=== PATIENT | male | born 1995 | race African-American/Black ===

== ENCOUNTER 2018-10-18 23:18 | Emergency (ER) | payer SELFPAY ==
[~2018-10-18] VITALS: Ht 188 cm; Wt 109.1 kg
[~2018-10-18 23:18] MED LIST: CEPHALEXIN500 M1 PO; NO HOME MEDICATIONS; NORCO 325 MG-51 TAB PO
[2018-10-18 23:27] VITALS: BP 145/76; TEMP 99
[2018-10-19] MEDS ORDERED: LEVAQUIN 750MG750 M1 PO (01:04)
[2018-10-19 01:27] VITALS: PULSE 70
== END 2018-10-19 01:27 | disposition home or self-care (01) ==
LOC: COL.ER 23:18
DX: S90.122A Contusion of left lesser toe(s) without damage to nail, initial encounter (principal); S90.425A Blister (nonthermal), left lesser toe(s), initial encounter; F17.210 Nicotine dependence, cigarettes, uncomplicated; F12.90 Cannabis use, unspecified, uncomplicated; F32.9 Major depressive disorder, single episode, unspecified; G47.00 Insomnia, unspecified; W22.8XXA Striking against or struck by other objects, initial encounter

== ENCOUNTER 2019-01-22 18:30 | Emergency (ER) | payer SELFPAY ==
[~2019-01-22] VITALS: Ht 190.5 cm; Wt 116.8 kg
[~2019-01-22 18:30] MED LIST changes: +LEVAQUIN 750MG750 M1 PO
[2019-01-22 18:35] VITALS: BP 148/65; TEMP 98.9
[2019-01-22 19:30] VITALS: PULSE 83
== END 2019-01-22 19:30 | disposition home or self-care (01) ==
LOC: COL.ER 18:30
DX: S61.212A Laceration without foreign body of right middle finger without damage to nail, initial encounter (principal); F17.210 Nicotine dependence, cigarettes, uncomplicated; F32.9 Major depressive disorder, single episode, unspecified; W25.XXXA Contact with sharp glass, initial encounter; Y92.009 Unspecified place in unspecified non-institutional (private) residence as the place of occurrence of the external cause

== ENCOUNTER 2021-02-09 11:03 | Emergency (ER) | payer OTHER ==
[~2021-02-09] VITALS: Ht 190.5 cm; Wt 98.2 kg
[2021-02-09 11:23] VITALS: BP 159/65; TEMP 98
[2021-02-09] MEDS ORDERED: CEPHALEXIN500 M1 PO (13:57)
[2021-02-09 14:06] VITALS: PULSE 65
== END 2021-02-09 14:06 | disposition home or self-care (01) ==
LOC: COL.ER 11:03
DX: S62.611A Displaced fracture of proximal phalanx of left index finger, initial encounter for closed fracture (principal); Z87.891 Personal history of nicotine dependence; W23.1XXA Caught, crushed, jammed, or pinched between stationary objects, initial encounter; Y92.009 Unspecified place in unspecified non-institutional (private) residence as the place of occurrence of the external cause

== ENCOUNTER 2023-11-28 09:39 | Observation (INO) | payer OTHER ==
[2023-11-28] VITALS (7 sets, daily range): BP systolic 125–136; BP diastolic 49–90; PULSE 60–76; TEMP 97.5–98.4
[~2023-11-28] VITALS: Ht 190.5 cm; Wt 100.0 kg
[2023-11-28] MEDS ORDERED: Morphine 4 MG/ML VIAL IV PRN ×2 (10:30→14:30)
[2023-11-28] MEDS ORDERED: NS 1,000 ML IV ONE (10:30)
[2023-11-28] MEDS ORDERED: Ondansetron 4 MG/2 ML VIAL IV ONE (10:30)
[2023-11-28 11:05] LABS: BASO % 0.2 % (0.0-2.0); EOS % 0.3 % (0.0-4.0); GRAN # 10.1 K/mm3 (1.4-6.5); GRAN % 81.1 % (42.2-75.2); HEMATOCRIT 42.3 % (42.0-52.0); HEMOGLOBIN 13.7 g/dl (13.5-18.0); LYMPH # 1.5 K/mm3 (1.2-3.4); LYMPH % 11.7 % (20.0-51.0); MEAN CELL VOLUME 65 fl (80.0-100.0); MEAN CORPUSCULAR HEMOGLOBIN 21 pg (27-31); MEAN CORPUSCULAR HGB CONC 32 g/dl (33.0-37.0); MEAN PLATELET VOLUME 8.9 fl (7.4-10.4); MONO # 0.8 K/mm3 (0.1-0.6); MONO % 6.5 % (1.7-9.3); PLATELET COUNT 321 K/mm3 (130-400); RED BLOOD COUNT 6.52 M/mm3 (4.20-5.60); REDCELL DISTRIBUTION WIDTH-CV 19.1 % (11.5-14.5)
[2023-11-28] MEDS ORDERED: Iohexol 300 - 100 ML VIAL IV ONE (11:13)
[2023-11-28] MEDS ORDERED: NS 100 ML IV SCH (11:14)
[2023-11-28 11:39] LABS: ALBUMIN 4.5 g/dL (3.5-5.0); BILIRUBIN,TOTAL 1.5 mg/dL (0.2-1.2); CALCIUM 10.1 mg/dL (8.4-10.2); CREATININE, serum 0.97 mg/dL (0.72-1.25); POTASSIUM 3.7 mEq/L (3.5-4.5); TOTAL PROTEIN 7.8 g/dl (6.2-8.1)
[2023-11-28] MEDS ORDERED: Succinylcholine PF 200 MG/10 ML SYRINGE IV ONE (12:35)
[2023-11-28] MEDS ORDERED: Lidocaine PF 2% (20 MG/ML) 5 ML VIAL ONE (12:37)
[2023-11-28] MEDS ORDERED: Rocuronium 50 MG/5 ML Multi-Dose VIAL ONE (12:42)
[2023-11-28] MEDS ORDERED: fentaNYL 50 MCG/ML 2 ML VIAL ONE ×2 (12:43→13:21)
[2023-11-28] MEDS ORDERED: dexAMETHasone 10 MG/ML VIAL ONE (13:03)
[2023-11-28] MEDS ORDERED: Ondansetron 4 MG/2 ML VIAL ONE (13:03)
[2023-11-28] MEDS ORDERED: Ketorolac 30 MG/ML VIAL ONE (13:03)
[2023-11-28] MEDS ORDERED: Glycopyrrolate 0.2 MG/ML 1 ML VIAL ONE (13:03)
[2023-11-28] MEDS ORDERED: NS 100 ML IV ONE (13:26)
[2023-11-28] MEDS ORDERED: Morphine 2 MG/1 ML VIAL [PACU/SDC ONLY] IV PRN (13:30)
[2023-11-28] MEDS ORDERED: fentaNYL 50 MCG/ML 1 ML SYRINGE/VIAL [PACU/SDC ONLY] IV PRN (13:30)
[2023-11-28] MEDS ORDERED: HYDROmorphone 1 MG/1 ML SYRINGE [PACU/SDC ONLY] IV PRN (13:30)
[2023-11-28] MEDS ORDERED: droPERidol 2.5 MG/ML 2 ML VIAL IV PRN (13:30)
[2023-11-28] MEDS ORDERED: Ondansetron 4 MG/2 ML VIAL IV PRN ×3 (13:30→14:30)
[2023-11-28] MEDS ORDERED: Topical Skin Adhesive 1 EACH (1 ML) TOP ONE (13:43)
[2023-11-28] MEDS ORDERED: NORCO 325 MG-51 TAB PO (14:25)
[2023-11-28] MEDS ORDERED: Acetaminophen 325 MG TAB PO PRN (14:30)
[2023-11-28] MEDS ORDERED: Ibuprofen 600 MG TAB PO PRN (14:30)
--- NOTE | 2023-11-28 14:30 | NUR ---
PATIENT CAME FROM OR APPROX. 1420. PATIENT ALERT AND ORIENTED X4.ON ROOM AIR, VSS WNL, NOM PAIN. PATIENT ABLE TO DRINK WITHOUT ISSUES. PATIENT ON REGULAR DIET. PATIENT HAS 3 INCISION SITES C/D/I.AFEBRILE. ON POST-OPS. CALL LIGHT WITHIN REACH. BED AT LOWEST POSITION.
--- NOTE | 2023-11-28 15:47 | NUR ---
PATIENT DENIES PAIN AT THIS TIME. ON ROOM AIR, GIRLFRIEND AT BED SIDE. PATIENT AFEBRILE. EATING AND DRINKING WITHOUT NAUSEA OR VOMITING. SWALLOWING WELL. ABLE TO URINATE WITHOUT ISSUES. 3 INCISION SITE TO ABDOMEN C/D/I SKIN GLUE NO DRESSING. CALL LIGHT WITHIN REACH BED AT LOWEST POSITION.
--- NOTE | 2023-11-28 17:10 | NUR ---
patient discharge instructions given. patient verbalized understanding. patient girlfriend at bedside. patient iv removed from left AC. patient escorted out of unit by this nurse accompanied by girlfriend.
== END 2023-11-28 17:15 | disposition home or self-care (01) ==
LOC: COL.ER 09:39 → MEDICAL 13:00 → SDCO 13:00 → MEDICAL 14:20 → SDCO 17:15 → MEDICAL 17:15
PROVIDERS: Personal Emergency Response Attendant; ADMIT Surgery
DX: K35.80 Unspecified acute appendicitis (principal); F17.290 Nicotine dependence, other tobacco product, uncomplicated
CPT/HCPCS: OP; J1100; J1885; J2270; J2405; J2543; J2704; J3010; J7030; Q9967